=== PATIENT | female | born 1930 | race Caucasian/White ===

== ENCOUNTER → 2016-09-13 | Outpatient (CLI) | payer OTHER ==
[~2016-09-13] MED LIST: CALC1CAP8 PO; CARV6.2512 PO; FISH OIL OMEGA1 EACH PO; FLUT1DIS3 INH; IPRA4AER INH; MELO7.5T5 PO; MULT-6 PO; RALO60TA PO
== END | disposition home or self-care (01) ==
LOC: CFH 10:10
PROVIDERS: ATTEND Internal Medicine
DX: J84.10 Pulmonary fibrosis, unspecified (principal); J43.2 Centrilobular emphysema; J98.11 Atelectasis; R06.09 Other forms of dyspnea
CPT/HCPCS: 71250